=== PATIENT | female | born 1980 | race Caucasian/White ===

== ENCOUNTER 2022-05-17 12:15 | Emergency (ER) | payer MEDICAID ==
[~2022-05-17] VITALS: Ht 152.4 cm; Wt 81.6 kg
[2022-05-17 12:25] VITALS: BP 147/84
--- NOTE | 2022-05-17 12:25 | NUR ---
PATIENT AMBULATED TO BED 3.
[2022-05-17 12:35] VITALS: BP 147/84
[2022-05-17] MEDS ORDERED: NITR100C7 PO (14:01)
[2022-05-17] MEDS ORDERED: PHEN-1593 PO (14:03)
[2022-05-17 14:09] LABS: APPEARANCE,URINE CLEAR (CLEAR); BILIRUBIN,URINE 1+ (NEGATIVE); BLOOD, URINE 1+ (NEGATIVE); COLOR,URINE ORANGE (YELLOW); LEUKOCYTE ESTERASE ,URINE 3+ (NEGATIVE); NITRITE, URINE POSITIVE (NEGATIVE); UGLUCOSE 2+ (NEGATIVE)
--- NOTE | 2022-05-17 14:15 | NUR ---
Patient discharged with v/s stable. Written and verbal after care instructions given and explained. Patient verbalized understanding. Ambulatory with steady gait. All questions addressed prior to discharge. Advised to follow up with PMD.
[2022-05-17 14:46] LABS: OTHER CASTS, URINE None Seen /LPF (None Seen)
== END 2022-05-17 14:15 | disposition home or self-care (01) ==
LOC: MED 12:15
DX: N30.00 Acute cystitis without hematuria (principal); F41.9 Anxiety disorder, unspecified; Z71.6 Tobacco abuse counseling; F17.210 Nicotine dependence, cigarettes, uncomplicated; Z79.899 Other long term (current) drug therapy; Z79.2 Long term (current) use of antibiotics
CPT/HCPCS: 81001; 81025; 87086; 99283